=== PATIENT | male | born 1955 | race Caucasian/White ===

== ENCOUNTER → 2017-04-25 | Outpatient (REF) | payer OTHER, MEDICARE, MEDICAID ==
[~2017-04-25] MED LIST: ALBU17IN INH; AMLO10TA2 PO; ATEN50TA2 PO; ATOR40TA75 PO; COUM2.5T17 PO; CYMB60CA3 PO; PERC5TAB12 PO; RANI1TAB6 PO; SYMB16INH INH; TRAZO50TA PO
[2017-04-25 16:39] LABS: BASO # 0.1 10^3/uL (0.0-0.2); BASO % 0.9 % (0.0-1.0); EOS # 0.2 10^3/uL (0.0-0.50); EOS % 1.7 % (0.0-3.0); IMMATURE GRANULOCYTE % 0.5 % (0-0); LYMPH # 2.1 10^3/uL (1.5-4.5); MEAN CORPUSCULAR HEMOGLOBIN 32.2 pg (27.0-33.0); MEAN CORPUSCULAR HGB CONC 32.9 g/dl (32.0-36.5); MEAN CORPUSCULAR VOLUME 98.1 fl (80.0-96.0); MONO % 10.4 % (0.0-5.0); NEUTROPHILS # 6.1 10^3/uL (1.8-7.7); NEUTROPHILS % 64.5 % (36.0-66.0); PLATELET COUNT, AUTOMATED 260 10^3/uL (150-450); RED CELL DISTRIBUTION WIDTH 13.6 % (11.5-14.5); WHITE BLOOD COUNT 9.4 10^3/uL (4.0-10.0)
[2017-04-27 07:08] LABS: ERYTHROCYTE SEDIMENTATION RATE 6 mm/hr (0-20)
== END ==
LOC: M LABDRAW1 12:08
PROVIDERS: ATTEND Physician Assistant
DX: Z96.651 Presence of right artificial knee joint (principal)

== ENCOUNTER 2017-07-31 08:04 | Outpatient (RCR) | payer MEDICARE, MEDICAID | END 2017-08-25 | LOC: M ST 08:04 | DX: Z51.89 Encounter for other specified aftercare (principal); I69.320 Aphasia following cerebral infarction | CPT/HCPCS: 97110 ==

== ENCOUNTER → 2018-07-09 | Outpatient (REF) | payer MEDICARE, MEDICAID ==
[~2018-07-09] MED LIST changes: -AMLO10TA2 PO; +AMLO10TA5 PO
[2018-07-09 16:12] LABS: BASO # 0.1 10^3/uL (0.0-0.2); BASO % 0.7 % (0.0-1.0); EOS # 0.3 10^3/uL (0.0-0.50); EOS % 3.8 % (0.0-3.0); HEMATOCRIT 44.1 % (42.0-52.0); HEMOGLOBIN 14.4 g/dl (13.5-17.5); LYMPH # 1.8 10^3/uL (1.5-4.5); LYMPH % 22.3 % (24.0-44.0); MEAN CORPUSCULAR HEMOGLOBIN 31.1 pg (27.0-33.0); MEAN CORPUSCULAR HGB CONC 32.7 g/dl (32.0-36.5); MEAN CORPUSCULAR VOLUME 95.2 fl (80.0-96.0); MONO % 12.2 % (0.0-5.0); NEUTROPHILS % 60.8 % (36.0-66.0); PLATELET COUNT, AUTOMATED 262 10^3/uL (150-450); RED BLOOD COUNT 4.63 10^6/uL (4.30-6.10); WHITE BLOOD COUNT 8.2 10^3/uL (4.0-10.0)
[2018-07-09 16:37] LABS: ERYTHROCYTE SEDIMENTATION RATE 7 mm/hr (0-20)
== END ==
LOC: M LABDRAW1 15:33
PROVIDERS: ATTEND Physician Assistant
DX: Z96.651 Presence of right artificial knee joint (principal)

== ENCOUNTER → 2018-07-31 | Outpatient (CLI) | payer MEDICARE, MEDICAID ==
--- NOTE | 2018-07-31 13:50 | REP ---
?TRIPLE PHASE BONE SCAN OF THE KNEES: Following the intravenous administration of 21.7 millicuries technetium 99m MDP, patient's knee are imaged in the flow phase in the anterior and posterior projections showing no level of blood flow. Immediate blood pool and 2.5 hour delayed images are performed in the knees in the anterior, posterior, and both lateral projections. There is a photopenic area in the right knee joint compatible with metallic prosthesis. There is no abnormal blood pooling. No abnormal delayed activity is seen along the margins of the prosthesis, with no evidence of loosening or infection. On the left, there is some minimal increased uptake in the medial tibial plateau compatible with degenerative changes in that region. IMPRESSION: No compelling evidence of loosening or infection of the right knee prosthesis. Electronically Signed by Scott Artis MD 07/31/2018 11:21 P
== END ==
LOC: M RAD 10:25
PROVIDERS: ATTEND Physician Assistant
DX: Z96.651 Presence of right artificial knee joint (principal)
CPT/HCPCS: 78315; A9503

== ENCOUNTER → 2018-12-16 | Outpatient (REF) | payer MEDICARE, MEDICAID ==
[~2018-12-16] MED LIST changes: +TRAZ1TAB6 PO; -TRAZO50TA PO
[2018-12-16 12:01] LABS: INR 1.07; PROTHROMBIN TIME 13.6 SECONDS (11.8-14.0)
[2018-12-16 12:02] LABS: PARTIAL THROMBOPLASTIN TIME 31.1 SECONDS (25.0-38.4)
== END ==
LOC: M LABDRAW1 10:07
PROVIDERS: ATTEND Physician Assistant
DX: Z01.818 Encounter for other preprocedural examination (principal)

== ENCOUNTER 2019-03-12 11:20 | Inpatient (IN) | payer MEDICARE, MEDICAID ==
[~2019-03-12] VITALS: Ht 177.8 cm; Wt 49.9 kg
[~2019-03-12 11:20] MED LIST changes: +**UNRESOLVED NON-FORMULARY MED ORDER XX SCH; +HYDR-3713 PO; +LIDOCAINE 1% MDV 20ML VIAL SQ PRN; +LR 1,000 ML IV ONE; +RANI-356 PO; -RANI1TAB6 PO; +TRAZ-252 PO; +VENTAER INH; +ceFAZolin SOD 1 GM in D5W MINI-BAG PLUS 50 ML IV ONE
[2019-03-12] MEDS ORDERED: PROPOFOL 200 MG/20 ML VIAL As Ordered ONE (11:28)
[2019-03-12] MEDS ORDERED: LIDOCAINE 2% INJ 100 MG/5 ML SDV (FOR ANES.) As Ordered ONE (11:28)
[2019-03-12] MEDS ORDERED: fentaNYL 100 MCG/2 ML INJECTION (J3010) As Ordered ONE ×2 (11:28→13:00)
[2019-03-12] MEDS ORDERED: ONDANSETRON 4MG/2ML VIAL (J2405) As Ordered ONE (11:29)
[2019-03-12] MEDS ORDERED: MIDAZOLAM INJ 2 MG/2 ML VIAL (J2250) As Ordered ONE ×2 (11:29→13:00)
[2019-03-12] MEDS ORDERED: dexameTHASONE 4 MG/ML 1ML VIAL (J1100) As Ordered ONE (11:29)
[2019-03-12] MEDS ORDERED: PAXI10TA12 PO (11:56)
[2019-03-12] MEDS ORDERED: ROCURONIUM BROMIDE 50 MG/5 ML VIAL As Ordered ONE ×2 (13:29→14:02)
[2019-03-12] MEDS ORDERED: BUPIVACAINE HCL 0.5% 30 ML VIAL As Ordered ONE (13:50)
[2019-03-12] MEDS ORDERED: PHENYLephrine HCL 500 MCG/5 ML (100MCG/ML) SYRINGE (J2370) As Ordered ONE (14:25)
[2019-03-12] MEDS ORDERED: ePHEDrine SULFATE 25 MG/5 ML(5MG/ML) SYRINGE As Ordered ONE (14:25)
[2019-03-12] MEDS ORDERED: VASOPRESSIN INJ 20 UNITS/ML VIAL As Ordered ONE (14:37)
[2019-03-12] MEDS ORDERED: HYDROmorphone HCL 2 MG/ML 1ML VIAL (J1170) As Ordered ONE (14:41)
[2019-03-12] MEDS ORDERED: GLYCOPYRROLATE INJ 0.2 MG/ML 2 ML VIAL As Ordered ONE (16:05)
[2019-03-12] MEDS ORDERED: NEOSTIGMINE 10 MG/10 ML VIAL (J2710) As Ordered ONE (16:05)
[2019-03-12] MEDS ORDERED: ACETAMINOPHEN 1000MG 100ML IV BTL (OFIRMEV) (J0131 PER 10MG) As Ordered ONE (16:08)
[2019-03-12] MEDS ORDERED: ONDANSETRON 4MG/2ML VIAL (J2405) IV PRN (17:15)
[2019-03-12] MEDS ORDERED: METOCLOPRAMIDE INJ 10MG/2ML VIAL (J2765) IV PRN (17:15)
[2019-03-12] MEDS ORDERED: PERCOCET 5MG/325MG TAB PO PRN (17:15)
[2019-03-12] MEDS ORDERED: LR 1,000 ML IV SCH (17:15)
[2019-03-12] MEDS ORDERED: fentaNYL 100 MCG/2 ML INJECTION (J3010) IV PRN (17:15)
[2019-03-12] MEDS: PHENYLephrine HCL 500 MCG/5 ML (100MCG/ML) SYRINGE (J2370) IV PRN ×3 (17:17→17:40)
[2019-03-12] MEDS ORDERED: ALBUTEROL SULFATE 2.5 MG/0.5 ML INH NEB SOLN NEB PRN (17:30)
[2019-03-12] MEDS ORDERED: PHENYLEPHRINE HCL INJ 10 MG in D5W 99 ML IV SCH (17:30)
[2019-03-12] MEDS: ePHEDrine SULFATE 25 MG/5 ML(5MG/ML) SYRINGE IV SCH ×20 (17:30→18:27)
[2019-03-12 17:47] LABS: BASO # 0.1 10^3/uL (0.0-0.2); BASO % 0.3 % (0.0-1.0); EOS % 0.1 % (0.0-3.0); HEMATOCRIT 41.2 % (42.0-52.0); HEMOGLOBIN 13.5 g/dl (13.5-17.5); LYMPH # 0.7 10^3/uL (1.5-5.0); LYMPH % 3.3 % (24.0-44.0); MEAN CORPUSCULAR HEMOGLOBIN 31.3 pg (27.0-33.0); MEAN CORPUSCULAR HGB CONC 32.8 g/dl (32.0-36.5); MEAN CORPUSCULAR VOLUME 95.6 fl (80.0-96.0); MONO # 0.4 10^3/uL (0.0-0.8); MONO % 1.8 % (0.0-5.0); NEUTROPHILS # 18.5 10^3/uL (1.5-8.5); NEUTROPHILS % 93.7 % (36.0-66.0); PLATELET COUNT, AUTOMATED 293 10^3/uL (150-450); RED BLOOD COUNT 4.31 10^6/uL (4.30-6.10); WHITE BLOOD COUNT 19.7 10^3/uL (4.0-10.0)
[2019-03-12 18:24] LABS: ALT/SGPT 12 U/L (12-78); BILIRUBIN,TOTAL 0.8 MG/DL (0.2-1.0); BLOOD UREA NITROGEN 11 MG/DL (7-18); CALCIUM LEVEL 8.4 MG/DL (8.8-10.2); CARBON DIOXIDE LEVEL 27 MEQ/L (21-32); CHLORIDE LEVEL 103 MEQ/L (98-107); CREATININE FOR GFR 0.84 MG/DL (0.70-1.30); GLOMERULAR FILTRATION RATE > 60.0 (>49); GLUCOSE, FASTING 124 MG/DL (70-100); POTASSIUM SERUM 3.8 MEQ/L (3.5-5.1); SODIUM LEVEL 135 MEQ/L (136-145); TOTAL PROTEIN 7.4 GM/DL (6.4-8.2)
[2019-03-12] MEDS ORDERED: SUGAMMADEX SODIUM 500 MG/5 ML VIAL (BRIDION) As Ordered ONE (18:43)
[2019-03-12 19:00] VITALS: BP 121/76
[2019-03-12] MEDS ORDERED: NS 500 ML IV ONE ×2 (19:00→21:00)
--- NOTE | 2019-03-12 19:06 | REP ---
Left calcaneus: Nine views. History: ORIF. 5 minutes 11 seconds of fluoroscopy time is reported. Findings: A sequence of nine last image hold fluoroscopically obtained spot radiographs of the calcaneus document osteotomy and operative manipulation and fixation. Electronically Signed by Jeffry Gomez MD 03/13/2019 06:19 P
[2019-03-12 19:30] VITALS: BP 114/74
[2019-03-12] MEDS ORDERED: ACETAMINOPHEN TAB 650MG DOSE (2X325MG) PO PRN (19:30)
[2019-03-12] MEDS: ALBUTEROL SULFATE 2.5 MG/0.5 ML INH NEB SOLN NEB SCH (20:00)
[2019-03-12] MEDS ORDERED: MORPHINE 4 MG/ML 1ML VIAL/SYRINGE (J2270) IV PRN (20:00)
[2019-03-12] MEDS ORDERED: oxyCODONE 5MG TAB PO PRN (20:00)
[2019-03-12] MEDS: SYMBICORT 160/4.5MCG INHALER 6GM INH SCH (20:00)
[2019-03-12 20:34] VITALS: BP 112/73
--- NOTE | 2019-03-12 20:46 | CR ---
DATE OF CONSULTATION: 03/12/2019 REFERRING PHYSICIAN: Dr. Carole Moreno. REASON FOR CONSULT: Management for chronic medical issues. HISTORY OF PRESENT ILLNESS: A 63-year-old male status post left foot calcaneal fracture open reduction internal fixation (ORIF) with postoperative hypotension, with his blood pressures 79/57 in the recovery room. Patient was sitting up, able to converse, with no respiratory distress, lightheadedness or dizziness. He was appropriate and awake, alert, oriented to himself, place and answered questions appropriately. Denied any chest pain, pressure or tightness, nausea or vomiting. No dizziness. No confusion. Patient was given ephedrine 5 mg every 3 minutes and 500 mL intravenous (IV) bolus, with improvement in blood pressure to 110/70 and he was subsequently taken to ra postoperatively. Patient complains of 10/10 pain, currently on intravenous morphine as needed and oxycodone 5-10 mg every 4 hours. PAST MEDICAL HISTORY: 1. Cerebrovascular accident (CVA) times two; the last one was two years ago. 2. Hypertension. 3. History of head trauma. PAST SURGICAL HISTORY: 1. Face skin graft. 2. Knee arthroplasty. 3. Total knee replacement 2018 at [facility]. 4. Cheek face replacement, [facility] [place]. ALLERGIES: LISINOPRIL. HOME MEDICATIONS: - Norvasc 10 mg daily - Lipitor 20 mg daily - Paxil 20 mg daily - gabapentin 600 mg daily - atenolol 50 mg daily - Symbicort 160/4.5 mcg per actuation - Ventolin HFA SOCIAL HISTORY: Patient is retired, previously worked in construction, has three steps into the home. Has a second story home. Lives with a roommate with one dog. He smokes 1/2 pack a day for the past 50 years. Uses marijuana daily. Denies any alcohol abuse. FAMILY HISTORY: Mother with arthritis. Uncle with hypertension, diabetes, heart disease and stroke. REVIEW OF SYSTEMS: Per history of present illness (HPI). A 12 point system otherwise negative. PHYSICAL EXAMINATION DURING CONSULTATION: Temperature 97.7, pulse 66 sinus, respiratory rate 16, blood pressure 81/54, 98% on 2 liters oxygen. GENERAL: Patient was lethargic, but arousable. He is able to state his name, where he is and the date. He answers questions appropriately. He had no respiratory distress or use of respiratory accessory muscles. He was anicteric. No jaundice. Dry mucous membranes. No jugular venous distention (JVD), thyromegaly or cervical lymphadenopathy. LUNGS: Clear to auscultation. No wheezing, rales or rhonchi. HEART: S1, S2. Sinus rhythm. ABDOMEN: Soft, nontender, nondistended. Positive bowel sounds. EXTREMITIES: No cyanosis or clubbing. Postoperative left ankle, which is bandaged. Able to wiggle his toes well. Skin on the toes are pink in color, well-perfused, warm to touch. LABORATORY DATA: White count 19.7, hemoglobin 13, hematocrit 41, platelet count 293. Sodium 135, potassium 3.8, chloride 103, bicarbonate 27, BUN 11, creatinine 0.8, glucose 124, calcium 8.4. Total bilirubin 0.8, AST 10, ALT 12, alkaline phosphatase 86, albumin 3. Thyroid stimulating hormone (TSH) 5.230. IMAGING STUDIES: 03/12/2019: Left calcaneal open reduction internal fixation (ORIF): A sequence of nine last images hold fluoroscopically obtained spot radiographs of the calcaneus document osteotomy and operative manipulation and fixation. ASSESSMENT AND PLAN: This is a 63-year-old male, history of cerebrovascular accident (CVA) times two in the past, hypertension, active smoker, status post left calcaneal ORIF with postoperative hypotension which responded to ephedrine and IV fluids, currently stable. Current issues are as follows: 1. Postoperative hypotension. Most likely related to pain medications and anesthesia. Responded well to ephedrine and IV fluid, 500 mL. Currently stable. His antihypertensives have been held and will be resumed once systolic pressure is 120 and greater. 2. Postoperative with ankle ORIF. Management per orthopedic surgery, including activity, deep venous thrombosis (DVT) prophylaxis, bowel regimen and pain control. Physical therapy (PT) evaluation in the morning once pain is better controlled. 3. History of perioperative cephazolin. 4. History of cerebrovascular accident (CVA) times two in the past. No acute issues. No history of atrial fibrillation. 5. Hypertension. Currently with low blood pressure. Atenolol and amlodipine have been held. 6. Active smoking. Resume on home dose of budesonide, formoterol, Xopenex as needed. 7. Depression. Continue on Paxil. 8. Nicotine abuse. Nicotine patch 14 mg daily. MTDD
[2019-03-12] MEDS: NICOTINE 14 MG/24 HR TRANSDERMAL TD SCH (21:00)
[2019-03-12] MEDS ORDERED: traZODone 50 MG TAB PO SCH (21:00)
[2019-03-12 21:43] VITALS: BP 113/72
[2019-03-12] MEDS: ceFAZolin SOD 2 GM in IV 1 EA IV SCH (21:47)
[2019-03-12] MEDS: LR 1,000 ML IV SCH (22:00)
[2019-03-12 22:30] VITALS: BP 112/72
[2019-03-13] MEDS: oxyCODONE 5MG TAB PO PRN ×4 (00:39→14:11)
[2019-03-13] MEDS: ceFAZolin SOD 2 GM in IV 1 EA IV SCH (05:35)
[2019-03-13 06:33] VITALS: BP 118/74
[2019-03-13] MEDS ORDERED: OXYC-517 PO (06:50)
[2019-03-13] MEDS ORDERED: ASPI81TA85 PO (06:50)
[2019-03-13] MEDS: ALBUTEROL SULFATE 2.5 MG/0.5 ML INH NEB SOLN NEB SCH ×2 (07:51→11:04)
[2019-03-13] MEDS: SYMBICORT 160/4.5MCG INHALER 6GM INH SCH (07:51)
[2019-03-13 08:23] LABS: CHOLESTEROL RISK RATIO 1.783 (<5); FREE THYROXINE INDEX 3.7 % (1.4-3.8); THYROID STIMULATING HORMONE 1.1 uIU/ML (0.358-3.740); THYROXINE (T4) 8.5 UG/DL (4.5-12.0)
[2019-03-13] MEDS ORDERED: amLODIPine 10 MG TAB PO SCH (09:00)
[2019-03-13] MEDS: NICOTINE 14 MG/24 HR TRANSDERMAL TD SCH (09:00)
[2019-03-13] MEDS ORDERED: ATORVASTATIN 20 MG TAB PO SCH (09:00)
[2019-03-13] MEDS ORDERED: VITAMIN D 1,000 INTERNATIONAL UNITS TABLET PO SCH (09:00)
[2019-03-13] MEDS ORDERED: FAMOTIDINE 20 MG TAB PO SCH (09:00)
[2019-03-13] MEDS ORDERED: ASPIRIN 325 MG TAB PO ONE (10:00)
[2019-03-13] MEDS: LR 1,000 ML IV SCH (12:06)
--- NOTE | 2019-03-13 14:52 | RO ---
DATE OF PROCEDURE: 03/12/2019 PREPROCEDURE DIAGNOSIS: Left calcaneal fracture. POSTPROCEDURE DIAGNOSIS: Left calcaneal fracture. PROCEDURE: Left calcaneus percutaneous reduction and fixation. SURGEON: Dr. Carole Moreno. EMAIL MARKETER: CARLOS Henderson ANESTHESIA: General endotracheal. ESTIMATED BLOOD LOSS: 10 mL. COMPLICATIONS: None. CONDITION: Stable in recovery. TOURNIQUET TIME: 96 minutes. IMPLANTS: Two 6.5 mm screws. INDICATION: Jourdan Estevez is a 63-year-old male who has sustained a displacement of a tongue type calcaneal fracture over the past 2 months. He has elected for a surgical fixation. Risks and benefits of surgery were discussed with the patient in detail and include but are not limited to infection, damage to nerves and blood vessels, continued pain and stiffness, need for additional procedures. He is at high risk of wound dehiscence given his poor nutritional status and smoking status as well. I have explained this to him in depth and he understands that with a bad infection he could even end up with an amputation. Patient would still like to proceed with surgery. DESCRIPTION OF PROCEDURE: Patient was met in the preoperative holding area where the left lower extremity was marked as the correct operative site. He was taken to the operating room and underwent general endotracheal anesthesia. A well padded tourniquet was placed in the left upper thigh. He was placed in the prone position. Bony prominences were well-padded. Chlorhexidine scrub was performed to the left lower extremity. It was then prepped and draped in the normal sterile fashion. Antibiotics were given within 60 minutes prior to incision. An official time-out was held where the correct patient, operative site and operative extremity were verified. At this point, Esmarch was used to exsanguinate the leg and tourniquet was inflated to 250 mmHg. A , approximately 2-2.5 cm incision was made just lateral to the Achilles tendon. The calcaneal tuberosity was approached. Using fluoroscopic imaging on lateral view I was able to identify the superior tuberosity fracture fragment. I placed a 4.0 mm Steinmann pin in this fragment. Given fracture was about 2 months old there was very limited motion after I performed the O'Fallon-Symone maneuver, however, I did get some closure of the gap. Next, using lateral view, I identified the primary fracture line. I made a small incision laterally. Care was taken to spread as to avoid the peroneal tendons and sural nerve. A small osteotome was used to further free up the fracture in this area. Again, was used through the incision near the Achilles to further free up the fracture. Once I had it moving well, a O'Fallon-Symone maneuver was performed again. I was able to obtain adequate reduction. Two clamps were used for further compression. Following this, the fracture was pinned in place. I then placed two 6.5 mm cannulated screws across the fracture site. Both had good bite. Copious irrigation was performed. Incisions were closed using #3-0 Vicryl and #3-0 nylon. A well padded splint was applied. Patient was extubated and brought to the recovery room in stable condition. PLAN: Patient will be non-weightbearing on the left lower extremity for approximately 3 months. He will be admitted to the hospital as he will likely need rehab placement. He will obtain 24 hours IV antibiotics. We will begin deep venous thrombosis (DVT) prophylaxis in the morning.
--- NOTE | 2019-03-17 16:16 | DSES ---
DATE OF ADMISSION: 03/12/2019 DATE OF DISCHARGE: 03/13/2019 ATTENDING PHYSICIAN: Dr. Carole Moreno ADMISSION DIAGNOSIS: Left calcaneus fracture. OTHER DIAGNOSES: History of CVA, hypertension, and history of head trauma. DISCHARGE DIAGNOSIS: Left calcaneus fracture status post open reduction, internal fixation (ORIF). OPERATION PERFORMED: ORIF of left calcaneus. HISTORY: This is a pleasant, 63-year-old male patient with a remote history of calcaneus fracture. Conservative management was unsuccessful and he was admitted for left calcaneus ORIF. HOSPITAL COURSE: The patient was admitted on the day of surgery and underwent an open reduction and internal fixation of nonunion left calcaneus fracture, which was uneventful. He did well in the postoperative period. On the day of discharge, his pain was controlled and he was discharged non-weightbearing on the left lower extremity. He will remain non-weightbearing on the left lower extremity for approximately 3 months. He did receive 24 hours of IV antibiotics and deep venous thrombosis (DVT) prophylaxis per protocol. He will resume his preoperative medications and diet along with oral pain medications for pain control. He was given instructions to include but not limited to wound monitoring and activity limitations. He will followup in our office in 10-14 days for surgical followup. Please see medical record for further details
== END 2019-03-13 14:37 | disposition home or self-care (01) | DRG 505 ==
LOC: M SDC 11:20 → M MS5PR 18:45
PROVIDERS: ADMIT Orthopaedic Surgery; ATTEND Orthopaedic Surgery
PROC: 0QSM0ZZ Reposition Left Tarsal, Open Approach (ICD-10-PCS; principal; 2019-03-12 13:45)
DX: S92.042A Displaced other fracture of tuberosity of left calcaneus, initial encounter for closed fracture (principal); I95.81 Postprocedural hypotension; I10 Essential (primary) hypertension; F17.200 Nicotine dependence, unspecified, uncomplicated; F32.9 Major depressive disorder, single episode, unspecified; Z79.899 Other long term (current) drug therapy; Z88.8 Allergy status to other drugs, medicaments and biological substances; Z96.659 Presence of unspecified artificial knee joint; X58.XXXA Exposure to other specified factors, initial encounter; Y92.9 Unspecified place or not applicable; Y99.8 Other external cause status

== ENCOUNTER → 2019-08-04 | Outpatient (CLI) | payer MEDICARE, MEDICAID ==
[~2019-08-04] MED LIST changes: -**UNRESOLVED NON-FORMULARY MED ORDER XX SCH; +ASPI81TA85 PO; -LIDOCAINE 1% MDV 20ML VIAL SQ PRN; -LR 1,000 ML IV ONE; +OXYC-517 PO; +PAXI10TA12 PO; -RANI-356 PO; +RANI-397 PO; -ceFAZolin SOD 1 GM in D5W MINI-BAG PLUS 50 ML IV ONE
--- NOTE | 2019-08-04 15:24 | REP ---
PET/CT: HISTORY: Abnormal lung finding. COMPARISONS: Comparison CT study of the chest June 17, 2019 from [facility]. Comparison CT study is also reviewed from September 02, 2018. TECHNIQUE: 46 minutes following the intravenous injection of a 9.42 mCi dose of F-18 FDG, three-dimensional PET scintigraphy is acquired from the skull base to the proximal thighs. Triplanar noncontrast CT scanning is acquired through the same anatomic range for attenuation correction, and image registration with scan parameters optimized to minimize radiation exposure to the patient. PET scintigraphy and CT datasets were fused and displayed on a workstation with multiplanar and projection display capability. PET/CT FINDINGS: Head and neck soft tissues are unremarkable. There is some skeletal muscle uptake about the shoulders as a normal variant. The loculated area of pleural thickening and pleural fluid at the right base anteriorly and laterally is improved from the prior CT study. There is visible but not hypermetabolic uptake here. Maximum standard uptake value in this pleural process on the right is 1.61. There are three linearly adjacent foci of slightly increased uptake in anterior rib ends at the left costal margin. Maximum standard uptake value in these linearly aligned rib lesions is 2.30 to 2.40. These are compatible with healing fractures. No other abnormal skeletal hypermetabolic uptake is seen. No abnormal uptake is seen in the abdomen or pelvis. IMPRESSION: The pleuroparenchymal process at the right base is improved and does not show hypermetabolic uptake. There is uptake in three linearly aligned rib ends anteriorly on the left along the costal margin consistent with healing fractures. No other abnormal uptake. Electronically Signed by Jfefry Gomez MD 08/04/2019 05:45 P
== END ==
LOC: M PLARAD 09:31
PROVIDERS: ATTEND Internal Medicine Pulmonary Disease
DX: R91.8 Other nonspecific abnormal finding of lung field (principal)
CPT/HCPCS: 78815; A9552

== ENCOUNTER → 2019-12-08 | Outpatient (REF) | payer MEDICARE, MEDICAID ==
[2019-12-08 14:37] LABS: BASO # 0.1 10^3/uL (0.0-0.2); BASO % 0.7 % (0.0-1.0); EOS # 0.1 10^3/uL (0.0-0.5); EOS % 1.6 % (0.0-3.0); HEMOGLOBIN 14.3 g/dl (13.5-17.5); LYMPH # 1.5 10^3/uL (1.5-5.0); LYMPH % 17.9 % (24.0-44.0); MEAN CORPUSCULAR HEMOGLOBIN 33.1 pg (27.0-33.0); MEAN CORPUSCULAR HGB CONC 32.5 g/dl (32.0-36.5); MEAN CORPUSCULAR VOLUME 101.9 fl (80.0-96.0); MONO # 1.1 10^3/uL (0.0-0.8); MONO % 13.2 % (0.0-5.0); NEUTROPHILS # 5.3 10^3/uL (1.5-8.5); NEUTROPHILS % 65.4 % (36.0-66.0); PLATELET COUNT, AUTOMATED 249 10^3/uL (150-450); RED BLOOD COUNT 4.32 10^6/uL (4.30-6.10); WHITE BLOOD COUNT 8.2 10^3/uL (4.0-10.0)
[2019-12-08 15:19] LABS: ALBUMIN 3.8 GM/DL (3.2-5.2); ALT/SGPT 17 U/L (12-78); BILIRUBIN,TOTAL 0.2 MG/DL (0.2-1.0); BLOOD UREA NITROGEN 8 MG/DL (7-18); CALCIUM LEVEL 8.8 MG/DL (8.8-10.2); CARBON DIOXIDE LEVEL 26 MEQ/L (21-32); CHLORIDE LEVEL 101 MEQ/L (98-107); CREATININE FOR GFR 0.65 MG/DL (0.70-1.30); GLOMERULAR FILTRATION RATE > 60.0 (>49); GLUCOSE, FASTING 60 MG/DL (70-100); NT-PRO BNP 768 PG/ML (<125); POTASSIUM SERUM 4.3 MEQ/L (3.5-5.1); SODIUM LEVEL 135 MEQ/L (136-145); TOTAL PROTEIN 8.1 GM/DL (6.4-8.2)
== END ==
LOC: M LAB REF 12:00
PROVIDERS: ATTEND Internal Medicine Pulmonary Disease
DX: J90 Pleural effusion, not elsewhere classified (principal)

== ENCOUNTER → 2019-12-08 | Outpatient (CLI) | payer MEDICARE, MEDICAID ==
--- NOTE | 2019-12-08 11:16 | REP ---
REASON: Followup. The latest prior for comparison is 12/06/2015. Since the prior examination bilateral, CP angle blunting has developed rather significantly with bilateral basilar opacities. The lung olguin are hyperexpanded status quo. The heart is not enlarged. The osseous structures are unchanged. IMPRESSION: Marked bibasilar abnormalities as described above. The latest prior for comparison as described above. Since there are no more recent priors for comparison, CT examination of the chest is recommended. Electronically Signed by Jacob Horan DO 12/08/2019 02:26 P
== END ==
LOC: M RAD 08:32
PROVIDERS: ATTEND Internal Medicine Pulmonary Disease
DX: R91.8 Other nonspecific abnormal finding of lung field (principal); J90 Pleural effusion, not elsewhere classified

== ENCOUNTER → 2020-01-02 | Outpatient (CLI) | payer MEDICARE, MEDICAID ==
[~2020-01-02] MED LIST changes: -AMLO10TA5 PO; +AMLO1TAB25 PO; -ASPI81TA85 PO; +ASPI81TA86 PO
--- NOTE | 2020-02-20 08:59 | REP ---
CT OF THE CHEST WITHOUT IV CONTRAST: Delay in reporting results from hospital computer system malfunction from malware/ ransomware. COMPARISON: PA and lateral plain film study dated 12/08/[address] without IV contrast dated 06/17/19. FINDINGS: On the comparison PA and lateral study of the chest, the lung olguin were hyperinflated and the costophrenic angles were effaced bilaterally. There was a question of bilateral pleural effusions. There was also a nodule-like density in the right costophrenic angle. On the comparison CT, there was a loculated right pleural effusion and there was calcific pleural plaque over the dome of the left hemidiaphragm. On the study today, there is multinodular thickening of the pleura on the right involving the right middle lower lobes inferolaterally; in the area of the previous loculated pleural effusion seen on the comparison CT. This thickening could represent neoplasm, scarring or combination. There is linear stranding extending from the zone of nodular pleural thickening into the right middle and lower lobes with similar diagnostic considerations. In the left lower lobe, there is linear stranding extending from the calcific pleural plaque over the dome of the left hemidiaphragm to the posterolateral pleura, unchanged from the prior CT, likely parenchymal scarring. There are no other lung nodules or masses. There are no other infiltrates or pleural effusions. The unenhanced thoracic aorta is unremarkable except for occasional calcified atheroma. Cardiac size is normal. There is mild pectus excavatum of the inferior sternum. This is unchanged. There are no lytic, blastic or destructive skeletal changes. The visualized upper abdominal contents are unremarkable. No adrenal mass is identified. IMPRESSION: Multinodular pleural thickening inferior anterolaterally of the right middle lobe and right lower lobe in the area where there was a loculated pleural effusion on the comparison CT. This could represent neoplasm, scarring or a combination. There is linear stranding extending from this area into the lung parenchyma. There is calcific pleural plaque overlying the dome of the left hemidiaphragm with linear stranding extending into the posterolateral left chest pleura, likely chronic parenchymal scarring, unchanged from the prior study. There are no acute infiltrates or effusions. No definite mediastinal or axillary lymph node enlargement. The study is insensitive for hilar lymph node enlargement in the absence of IV contrast. MTDD
== END ==
LOC: M RAD 08:00
PROVIDERS: ATTEND Internal Medicine Pulmonary Disease
DX: J90 Pleural effusion, not elsewhere classified (principal); R91.8 Other nonspecific abnormal finding of lung field